=== PATIENT | female | born 1985 | race Caucasian/White ===

== ENCOUNTER → 2017-12-26 11:21 | Outpatient (CLI) | payer SELFPAY ==
--- NOTE | 2017-12-26 11:49 | RAD_ITS ---
PROCEDURE: HYSTEROSALPINGOGRAM. REASON FOR EXAM: Female, 32 years old. Infertility. FLUOROSCOPY TIME (if supplied): (11) seconds RADIATION DOSAGE (If Supplied By Facility): CTDIvol = ( 12.25 ) mGy. 7 images STERILE BARRIER TECHNIQUE: The following sterile barrier precautions were used during the procedure: hand hygiene; use of 2% chlorhexidine aseptic; use of a cap, mask, sterile gown, sterile gloves, sterile full body drape, and a large sterile sheet. PROCEDURE/TECHNIQUE: The risks, benefits, and alternatives to the procedure were explained to patient, and the patient agreed to the procedure and signed a consent form for the procedure. A timeout was performed to confirm the patient's identity, the type of procedure, to be performed and the site of entry. Injection Information: 15 mL of Isovue-370 Number of images obtained: 7 TECHNIQUE: Visualization of the cervix is performed using a speculum. A Betadine solution is used to cleanse the cervix orifice. Under fluoroscopic guidance a balloon catheter is inserted in the endometrial cavity the balloon is inflated with 3 cc of air. 10 mL of Omnipaque 300 were injected in the endometrial cavity. FINDINGS: There is normal opacification of the endometrial cavity. Both fallopian tubes are opacified. Peritoneal spill is seen bilaterally. RAD/Salpingogram IMPRESSION: Patent fallopian bilaterally. Electronically Signed: Bisi Bonilla MD at 15:51 EDT Tel , Service support ,
== END ==
PROVIDERS: Referring Provider Obstetrics & Gynecology; Visit Provider Obstetrics & Gynecology
DX: Z31.41 Encounter for fertility testing (principal)
CPT/HCPCS: 58340; 74740; Q9967